=== PATIENT | female | born 2000 | race Caucasian/White ===

== ENCOUNTER 2023-08-01 21:47 | Emergency (ER) | payer OTHER, SELFPAY ==
[2023-08-01 21:48] VITALS: BP 106/75; PULSE 100; RESP 16; TEMP 36.8; O2SAT 100; BMI 19.8
--- NOTE | 2023-08-02 00:36 | EDS_ITS ---
HPI History of Present Illness Chief Complaint: Wound Informant: patient Onset/Context/Timing Onset: Today Context: Sudden Onset Timing: Continuous Quality: Aching Location: Right breast Worsened by: Movement and palpation Relieved by: Nothing Narrative Narrative: Patient presents with injury to her right breast that occurred tonight. Patient states that she was taking a shower and the nipple piercing got caught on her shower door and was partly removed. Patient admits to some pain in her right breast. Patient states it is worse with movement and palpation. Patient denies any paresthesias or weakness. Patient states the bleeding stopped after a few minutes. Patient denies any other injuries. PFSH PFSH no medical history Allergy/AdvReac Type Severity Reaction Status Date / Time No Known Allergies Allergy Verified 08/01/23 21:51 no surgical history Social History (Updated 08/02/23 @ 00:[address] Sonido Hallman, DO) Electronic Cigarette Use: with nicotine ROS ROS ED Constitutional Constitutional ED: Denies chills or fever(s) Eyes Eyes: Denies blurry vision or change in vision ENT ENT ED: Denies rhinorrhea or sore throat Cardiovascular Cardiovascular: Denies chest pain or palpitations Respiratory/Chest Respiratory/Chest: Denies cough or dyspnea Gastrointestinal Gastrointestinal: Denies nausea or vomiting Genitourinary Genitourinary ED: Denies dysuria or hematuria Musculoskeletal Musculoskeletal: Denies back pain or neck pain Integumentary Denies abscess or rash Neurologic Neurologic: Denies headache(s) or weakness Allergic/Immunologic Allergic/Immunologic ED: Denies mouth swelling or urticaria EXAM Physical Exam Const Vital Signs: 08/01/23 21:48 Temperature 98.3 F Temperature Source Temporal Pulse Rate 100 Respiratory Rate 16 Blood Pressure 106/75 Blood Pressure Mean 85 Pulse Ox 100 Oxygen Delivery Method Room Air Positive well nourished and well developed General Appearance ED: well developed and NAD HEENT Reports moist mucous membranes Neck supple and no JVD Chest Wall inspection of chest normal Chest Narrative: There is mild tenderness over the right nipple and areola. There is no erythema. There is some dried blood noted. The piercing was partially in place. There are no lacerations noted. There is no active bleeding. Neuro oriented x3, CN's II-XII intact bilaterally and no sensory deficits noted Sensorium / Orientation: alert Motor Exam: strength 5/5 throughout Psych mental status grossly normal MDM MDM MDM Narrative Medical decision making narrative: Patient was given a tetanus booster. Chaperoned exam was performed. The piercing site was anesthetized with 1% plain lidocaine locally. The piercing was removed intact. There is no bleeding noted. Patient tolerated the procedure well. Patient was instructed to follow-up with her primary care p hysician in 5 to 7 days. Patient understood and was agreeable with the plan. All questions were answered. Discharge Plan Triage Chief Complaint: Wound ED Provider: Sonido Hallman Dx/Rx/DC Orders Clinical Impression: Body piercing, Foreign body of right breast Instructions: ED Foreign Body, Soft Tissue (Removed) Primary Care Provider: NOT,DEFINED Referrals: NOT,DEFINED [Primary Care Provider] - 5-7 Days Disposition Disposition: Home, Self Care
[2023-08-02 00:50] VITALS: BP 105/76; PULSE 97; RESP 14; O2SAT 98
== END 2023-08-02 00:50 | disposition home or self-care (01) ==
PROVIDERS: Emergency Provider Emergency Medicine; Visit Provider Emergency Medicine
DX: S20.151A Superficial foreign body of breast, right breast, initial encounter (principal); X58.XXXA Exposure to other specified factors, initial encounter; Y93.E1 Activity, personal bathing and showering; F17.210 Nicotine dependence, cigarettes, uncomplicated; Z23 Encounter for immunization
CPT/HCPCS: 99282